=== PATIENT | female | born 1965 | race Asian ===

== ENCOUNTER 2020-10-18 09:46 | Day surgery (SDC) | payer BC ==
--- NOTE | 2020-09-30 17:06 | EKG REPORT ---
SEVERITY:- NORMAL ECG - SINUS BRADYCARDIA : Confirmed by: Ho Swanson MD 30-Sep-2020 17:05:38
[~2020-10-18 09:46] MED LIST: PROPOFOL INJ 200 MG/20 ML VIAL IV ONE
[2020-10-18] MEDS ORDERED: PROPOFOL INJ 200 MG/20 ML VIAL IV ONE (13:06)
[2020-10-18 14:10] VITALS: BP 157/84
--- NOTE | 2020-10-18 14:46 | Discharge Summary ---
Discharge Summary (SDC) - Discharge Final Diagnosis: Gastritis, shallow gastric ulcers, duodenal diverticulum, small sliding hiatal hernia, large internal hemorrhoids. Date of Surgery: 10/18/20 Discharge Date: 10/18/20 Condition: Good Forms: EU Anesthesia D/C Instructions, Discharge POC-Surgical Service Treatment or Instructions: INCREASE DIET TOLERATED, NO DRIVING OR OPERATING EQUIPMENT THAT REQUIRES ATTENTION, KEEP SCHEDULED APPOINTMENTS, REPORT UNUSUAL BLEEDING, NAUSEA OR VOMITING Referrals: ZAYNAB ANAYA MD [ACTIVE STAFF] - Discharge Diet: As Tolerated Respiratory Treatments at Home: Deep Breathing/Coughing, Incentive Spirometer Discharge Activity: Activity As Tolerated, Balance Activity w/Rest, No Driving, No Lifting Over 10 Pounds Home Care Assistance: None Needed Report the Following to Your Physician Immediately: Shortness of Breath, Nausea, Vomiting, Increase in Pain, Unusual Bleeding
--- NOTE | 2020-10-18 15:02 | Operative Report ---
Nonrecallable Operative Report DATE OF SURGERY: 10/18/20 PREOPERATIVE DIAGNOSIS: Abdominal pain, rectal bleeding POSTOPERATIVE DIAGNOSIS: 1. Duodenal diverticulum. 2. Shallow gastric ulcers with gastritis. 3. Sliding hiatal hernia. 4. Large, bleeding internal hemorrhoids. OPERATION: 1. EGD with biopsy. 2. Colonoscopy to the cecum. 3. Rubber band ligation of internal hemorrhoids x5. SURGEON: ZAYNAB ANAYA ANESTHESIA: LMAC TISSUE REMOVED OR ALTERED: 1. Gastric antrum biopsy. 2. Distal esophagus. COMPLICATIONS: none apparent ESTIMATED BLOOD LOSS: minimal PROCEDURE: Procedure in detail: After informed consent was obtained, the patient was brought to the operating room and laid in the left lateral decubitus position. The endoscope was inserted into the oropharynx. It was pushed past the oropharynx, and into the esophagus. The scope was then pushed through the esophagus and into the stomach. Stomach was insufflated with air. Antral gastritis was identified with shallow gastric ulcerations and old blood within the stomach. Biopsy was taken in the most affected portion of the antrum. The scope was pushed into the first and second portions of the duodenum. In the second portion of the duodenum there was found to be a large duodenal diverticulum. The diverticulum was inspected from afar, however it was not entered. The scope was withdrawn into the first portion of the duodenum which appeared normal. The scope was then withdrawn into the gastric body. Retroflexion maneuver was performed in the gastric body, demonstrating a small, sliding hiatal hernia. The scope was withdrawn into the distal esophagus. The distal esophagus appeared normal. There were no significant ulcerations. A biopsy was taken in the distal esophagus to rule out Zamarripa's esophagus. Scope was withdrawn up the remainder of the esophagus. The remainder the esophagus was smooth in contour without masses, lesions, or other abnormalities. The scope was removed from the oropharynx, and this portion of the procedure was concluded. Attention was then turned to the colonoscopy. The colonoscope was inserted into the rectum. It was passed up the rectum, sigmoid colon, descending colon, across transverse colon, down the ascending colon, and into the cecum. The ileocecal valve and appendiceal orifice were identified. The scope was then withdrawn, circumferentially noting the mucosa. The prep was good. The scope was withdrawn past the ascending colon, transverse colon, down the descending colon, sigmoid colon, and into the rectum. In the rectum, a retroflexion maneuver was performed noting very large internal hemorrhoids. The scope was straightened, air was suctioned from the rectum, the scope was removed, and this portion of the procedure was concluded. A Hill-Grant retractor was then inserted into the rectum. Large internal hemorrhoids were ligated in the right anterior, right posterior, and left lateral positions. 5 rubber bands were used in total. Once all of the obvious hemorrhoidal tissue was banded, the Hill-Grant retractor was removed, and the procedure was concluded. All sponge, instrument, and needle counts were correct x2. Condition: Stable.
== END 2020-10-18 14:00 | disposition home or self-care (01) ==
LOC: END 09:46
PROVIDERS: ATTEND Surgery
DX: K25.9 Gastric ulcer, unspecified as acute or chronic, without hemorrhage or perforation (principal); K44.9 Diaphragmatic hernia without obstruction or gangrene; K64.8 Other hemorrhoids; K31.9 Disease of stomach and duodenum, unspecified; K57.10 Diverticulosis of small intestine without perforation or abscess without bleeding; K29.70 Gastritis, unspecified, without bleeding; K21.9 Gastro-esophageal reflux disease without esophagitis; Z20.828 Contact with and (suspected) exposure to other viral communicable diseases; Z01.818 Encounter for other preprocedural examination; F17.210 Nicotine dependence, cigarettes, uncomplicated; F12.90 Cannabis use, unspecified, uncomplicated; Z79.899 Other long term (current) drug therapy; E78.00 Pure hypercholesterolemia, unspecified; Z87.19 Personal history of other diseases of the digestive system
CPT/HCPCS: 43239; 45378; 46221; 93005; 88342 ×2; 88305 ×2; 93010; 00813; U0003 ×2; J2704; C9803 ×2; 813; 87635